=== PATIENT | male | born 1990 | race Caucasian/White ===

== ENCOUNTER 2020-05-25 16:50 | Emergency (ER) | payer BC ==
[~2020-05-25] VITALS: Ht 195.6 cm; Wt 118.0 kg
[2020-05-25 16:52] VITALS: BP 138/94
[2020-05-25] MEDS ORDERED: KETOROLAC 30 MG/ML VIAL. IM ONE (17:15)
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
[2020-05-25] MEDS ORDERED: HYDR-3165 PO (17:57)
[2020-05-25] MEDS ORDERED: HYDROcodone/APAP 5/325MG 1 TAB TABLET PO ONE (18:00)
== END 2020-05-25 18:35 | disposition home or self-care (01) ==
LOC: ER 16:50
DX: S42.022A Displaced fracture of shaft of left clavicle, initial encounter for closed fracture (principal); F17.210 Nicotine dependence, cigarettes, uncomplicated; V86.59XA Driver of other special all-terrain or other off-road motor vehicle injured in nontraffic accident, initial encounter; Y93.I9 Activity, other involving external motion; Y92.89 Other specified places as the place of occurrence of the external cause; Y99.8 Other external cause status
CPT/HCPCS: 29105; 73000; 99283

== ENCOUNTER → 2020-06-15 | Outpatient (CLI) | payer BC ==
[2020-05-25 16:52] VITALS: BP 138/94
[~2020-06-15] MED LIST: HYDR-3165 PO
--- NOTE | 2020-06-15 17:31 | RAD ---
CLAVICLE LEFT 06/15/2020 12:00 AM INDICATION: Fracture follow-up COMPARISON: Left clavicle radiograph 05/25/2020 TECHNIQUE: 2 views of the left clavicle are provided. FINDINGS/ IMPRESSION: Plate and screw fixation of the clavicle is noted. There is a persistent ossific fragment projecting inferiorly. There is improved alignment of the fracture. There is increased sclerosis along the fracture line with minimal residual fracture line. Acromioclavicular joint is well aligned. No pneumothorax. Electronically signed by: Rafaela Lopes MD (06/15/2020 5:28 PM) [id number]
== END | disposition home or self-care (01) ==
LOC: RAD 13:07
PROVIDERS: ATTEND Physician Assistant
DX: S42.022D Displaced fracture of shaft of left clavicle, subsequent encounter for fracture with routine healing (principal); X58.XXXD Exposure to other specified factors, subsequent encounter; M89.512 Osteolysis, left shoulder
CPT/HCPCS: 73000

== ENCOUNTER → 2020-07-16 | Outpatient (CLI) | payer BC ==
--- NOTE | 2020-07-16 17:26 | RAD ---
EXAM: Left clavicle, 2 views. HISTORY: Fracture fixation. COMPARISON: 06/15/2020 FINDINGS: 2 views of the right clavicle are obtained. There is internal fixation of a left clavicle fracture with a plate and multiple screws. The fracture line is slightly less distinct compared to the prior exam. There is an adjacent butterfly fracture fragment. No new fracture is seen. IMPRESSION: Minimal interval healing of a left clavicle fracture status post internal fixation. Electronically signed by: Lily Macias MD (07/16/2020 5:24 PM) [id number]
== END | disposition home or self-care (01) ==
LOC: DXRAD 13:56
PROVIDERS: ATTEND Orthopaedic Surgery
DX: S42.022D Displaced fracture of shaft of left clavicle, subsequent encounter for fracture with routine healing (principal); X58.XXXD Exposure to other specified factors, subsequent encounter
CPT/HCPCS: 73000